=== PATIENT | female | born 1975 | race Caucasian/White ===

== ENCOUNTER 2017-07-01 18:43 | Emergency (ER) | payer SELFPAY ==
[~2017-07-01] VITALS: Ht 157.5 cm; Wt 52.2 kg
--- NOTE | 2017-07-01 18:46 | NUR ---
BBRA 102 FROM STREETS FOUND ALTERED S/P HEROIN USE NARCAN 2 GIVEN IN FIELD WITH RESPONSE
[2017-07-01 19:10] LABS: BASOPHILS % (AUTO) 0.3 % (0.0-2.0); EOSINOPHILS % (AUTO) 0.8 % (0.0-6.0); HEMATOCRIT 35 % (33-45); HEMOGLOBIN 11.3 g/dL (11.5-14.8); LYMPHOCYTES # (AUTO) 1.5 /CMM (0.8-4.8); LYMPHOCYTES % (AUTO) 41.1 % (20.0-44.0); MEAN CORPUSCULAR HEMOGLOBIN 29 PG (26.0-33.0); MEAN CORPUSCULAR HGB CONC 33 g/dl (31.0-36.0); MEAN CORPUSCULAR VOLUME 89 fL (82-100); MONOCYTES # (AUTO) 0.3 /CMM (0.1-1.30); MONOCYTES % (AUTO) 7.4 % (2.0-12.0); NEUTROPHILS # (AUTO) 1.9 /CMM (1.8-8.9); NEUTROPHILS % (AUTO) 50.4 % (43.0-81.0); PLATELET COUNT (AUTO) 184 /CMM (150-450); RDW COEFFICIENT OF VARIATION 18.3 (11.5-15.0); RED BLOOD CELL COUNT(AUTO) 3.88 MIL/uL (4.0-5.2); WHITE BLOOD COUNT (AUTO) 3.8 K/uL (4.3-11.0)
--- NOTE | 2017-07-01 19:14 | NUR ---
RECEIVED REPORT FROM MYKE RUBY
--- NOTE | 2017-07-01 19:27 | NUR ---
PT AO TO NAME. PT REFUSED TO BE CHANGED. RISK AND BENEFITS EXPLAINED X3. AWARE
--- NOTE | 2017-07-01 19:31 | NUR ---
DR. THAO AT BEDSIDE SPEAKING TO PT.
[2017-07-01 19:38] LABS: CALCIUM, SERUM 7.6 mg/dL (8.5-10.1); CARBON DIOXIDE 24 mmol/L (21-32); CHLORIDE 106 mmol/L (98-107); CREATININE 0.5 mg/dL (0.6-1.3); GLUCOSE 121 mg/dL (74-106); POTASSIUM 3.2 mmol/L (3.5-5.1); SODIUM SERUM 141 mmol/L (136-145); UREA NITROGEN, BLOOD 10 mg/dL (7-18)
[2017-07-01 19:43] LABS: ALANINE AMINOTRANSFERASE 73 U/L (12-78); ALBUMIN 3.4 g/dL (3.4-5.0); ALKALINE PHOSPHATASE 89 U/L (46-116); ASPARTATE AMINOTRANSFERASE 127 U/L (15-37); BILIRUBIN,DIRECT 0.1 mg/dL (0.0-0.2); BILIRUBIN,TOTAL 0.3 mg/dL (0.2-1.0); TOTAL PROTEIN, SERUM 7.1 g/dL (6.4-8.2)
[2017-07-01 19:56] LABS: ACETAMINOPHEN < 2 ug/ml (10-30); SALICYLATE 0.5 mg/dL (2.8-20.0)
[2017-07-01 20:09] LABS: ALCOHOL, BLOOD 360 mg/dL (0-0)
--- NOTE | 2017-07-02 01:50 | NUR ---
Patient is resting comfortably in bed with eyes closed. Easily aroused. VSS
--- NOTE | 2017-07-02 03:33 | NUR ---
PT AMBULATORY TO RESTROOM WITH STEADY GAIT. URINE COLLECTED. CALLED LAB FOR FABRIC SOURCER. PT IS AOX4. DENIES HI/ SI. PT STATES SHE DID NOT TAKE ANY DRUGS. AND THAT SHE DRANK A LOT. HX ALCOHOL ABUSE.
--- NOTE | 2017-07-02 03:55 | NUR ---
IV removed. Catheter intact and site benign. Pressure and 4x4 applied to site. No bleeding noted. Patient discharged to home in stable condition. Written and verbal after care instructions given. Patient verbalizes understanding of instruction. pt ambulatory with a steady gait. instructed not to drive. pt verbalize understanding.
[2017-07-02 03:56] VITALS: BP 128/69
[2017-07-02 04:05] LABS: APPEARANCE,URINE SL CLOUDY (CLEAR); BILIRUBIN,URINE NEGATIVE (NEGATIVE); BLOOD, URINE 3+ Ery/uL (NEGATIVE); COLOR,URINE DARK YELLO (YELLOW); KETONES,URINE TRACE (NEGATIVE); LEUKOCYTE ESTERASE ,URINE NEGATIVE (NEGATIVE); NITRITE, URINE NEGATIVE (NEGATIVE); PH,URINE 5.5 (5.0-8.0); PROTEIN,URINE TRACE mg/dl (NEGATIVE); UGLUCOSE NEGATIVE (NEGATIVE); UROBILINOGEN,URINE 0.2 EU/dL (0.2)
[2017-07-02 04:12] LABS: BACTERIA,URINE None seen /HPF (None Seen); PREGNANCY TEST URINE QUAL NEGATIVE (NEGATIVE); RBC,URINE 51-80 /HPF (0-2); SQUAMOUS EPITHELIAL CELL,UR Few /HPF (None Seen)
== END 2017-07-02 03:57 | disposition home or self-care (01) ==
LOC: ER 18:44 → EDBD 18:44 → ER 07-02 03:57
DX: T51.91XA Toxic effect of unspecified alcohol, accidental (unintentional), initial encounter (principal); G93.40 Encephalopathy, unspecified; Y92.89 Other specified places as the place of occurrence of the external cause
CPT/HCPCS: 36415; 80048-TC; 80076-TC; 80305; 81000-TC; 84703-TC; 85025-TC; A4606; G0480; J2310; J7030; Z7610